=== PATIENT | female | born 1955 | race Caucasian/White ===

== ENCOUNTER 2021-06-07 08:53 | Emergency (ER) | payer MEDICARE, BC ==
--- NOTE | 2021-06-07 09:22 | EDM.PDOC ---
ED HPI GENERAL MEDICAL PROBLEM - General Chief Complaint: General Stated Complaint: CONFUSED, SHORTNESS OF BREATH, FATIGUE Time Seen by Provider: 06/07/21 09:11 Source of Information: Reports: Patient, Family - History of Present Illness INITIAL COMMENTS - FREE TEXT/NARRATIVE: Karen is a 66 y/o female who is brought to the ER by her for confusion. Over the last 2 days, she has been not herself and somewhat confused. She has a hard time thinking about things and remembering things and couldn't decide if it was fall or winter to put on the right jacket. One time over the weekend she fell asleep on the toilet and that is very unusual fro her. Her reports that she was looking at her pills and then was getting confused and not sure what she needed to take. No fever. She did all of a sudden have a couple bouts bouts of shortness of breath and some congestion this AM. No fevers. She has been vaccinated for flu and COVID. Had a positive COVID exposure about 2 weeks ago that she is aware of. She was supposed to clean house today,but she could not remember who it was for ans this is very bizarre for her. She knows she is confused and she finds this very distressing. - Related Data Allergies Allergy/AdvReac Type Severity Reaction Status Date / Time diazepam [From Valium] Allergy Cannot Verified 06/07/21 09:28 Remember tizanidine [From Zanaflex] Allergy Cannot Verified 06/07/21 09:28 Remember Home Meds: Home Meds Amoxicillin 875 mg PO BID #20 tablet 06/07/21 [Rx] Aspirin 325 mg PO DAILY 06/07/21 [History] Celecoxib [CeleBREX] 200 mg PO BID 06/07/21 [History] DULoxetine [Cymbalta] 90 mg PO DAILY 06/07/21 [History] Gabapentin [Neurontin] 200 mg PO BEDTIME 06/07/21 [History] Omeprazole Magnesium [Prilosec Otc] 20 mg PO DAILY 06/07/21 [History] carisoprodoL [Soma] 350 mg PO TID 06/07/21 [History] rOPINIRole [Requip] 0.5 mg PO BEDTIME 06/07/21 [History] Social & Family History - Tobacco Use Tobacco Use Status *Q: Never Tobacco User ED ROS GENERAL - Review of Systems Review Of Systems: See Below Constitutional: Reports: Fatigue HEENT: Reports: Other (Congestion) Respiratory: Reports: Shortness of Breath (mild) Cardiovascular: Reports: No Symptoms Endocrine: Reports: No Symptoms GI/Abdominal: Reports: No Symptoms : Reports: No Symptoms Musculoskeletal: Reports: No Symptoms Skin: Reports: No Symptoms Neurological: Reports: Confusion, Trouble Speaking Psychiatric: Reports: Confusion Hematologic/Lymphatic: Reports: No Symptoms Immunologic: Reports: No Symptoms ED EXAM, GENERAL - Physical Exam Exam: See Below Exam Limited By: Altered Mental Status (mildly confused) General Appearance: Alert, WD/WN, No Apparent Distress (Elderly female, neatly dressed. Slightly distressed and teary-eyed and she knows she is confused.) Eye Exam: Bilateral Eye: PERRL Ears: Normal External Exam, Normal Canal, Hearing Grossly Normal, Normal TMs Nose: Normal Inspection, Normal Mucosa Throat/Mouth: Normal Inspection, Normal Lips, Normal Oropharynx, Normal Voice Head: Atraumatic, Normocephalic Neck: Normal Inspection, Supple Respiratory/Chest: No Respiratory Distress, Lungs Clear, Chest Non-Tender Cardiovascular: Normal Peripheral Pulses, Regular Rate, Rhythm, No Murmur GI/Abdominal: Normal Bowel Sounds, Soft, Non-Tender, No Distention (Female) Exam: Deferred Rectal (Female) Exam: Deferred Back Exam: Normal Inspection, Full Range of Motion Extremities: Normal Inspection, Normal Range of Motion, No Pedal Edema, Normal Capillary Refill Neurological: Alert, Oriented (Confused at times with some memory loss), CN II- XII Intact, Normal Gait, Slow to Respond Psychiatric: Tearful Skin Exam: Warm, Dry, Intact, Normal Color Lymphatic: No Adenopathy #1 Interpretation EKG Date: 06/07/21 Time: 09:36 Rhythm: NSR Rate (Beats/Min): 61 [place]: Normal P-Wave: Present QRS: Normal ST-T: Normal QT: Normal EKG Interpretation Comments: Normal Sinus Rhythm Course - Vital Signs Text/Narrative:: 0911 The patient was seen by the INSURANCE LICENSING SUPERVISOR. Labs, EKG, CXR, and Head CT ordered. Consider COVID, CVA, Cardiac Condition, Tumor, Electrolyte Imbalance, Infection as differentials. 1110 Labs and other diagnostics completed. CBC, CMP, Trop neg. CT neg other than a sinusitis noted. EKG notes NSR, doubt any cardiac etiology. Note UA pos for leuk es and WBCs, will treat with Amoxicillin to cover both UTI and Sinus infection. COVID neg, but she could be early in the course and advised to monitor sx. Results were reviewed with the patient and her . Also note she is on several medications including Gabapentin, Fletcher, Cymbalta that could cause some confusion of she took an excessive amount. Written instructions were given to the patient and her and she left the ER in stable condition. Last Recorded V/S: Last Vital Signs Temp 36.5 C 06/07/21 08:58 Pulse 64 06/07/21 10:05 Resp 18 06/07/21 08:58 BP 135/84 06/07/21 10:05 Pulse Ox 100 06/07/21 08:58 - Orders/Labs/Meds Orders: Active Orders 24 hr Category Date Time Status CULTURE URINE [RM] Stat Lab 06/07/21 10:10 Received Sodium Chloride 0.9% [Saline Flush] Med 06/07/21 09:27 Active 10 ml FLUSH ASDIRECTED PRN Saline Lock Insert [OM.PC] Stat Oth 06/07/21 09:28 Ordered Medication Orders Sodium Chloride (Sodium Chloride 0.9% 10 Ml Syringe) 10 ml FLUSH ASDIRECTED PRN PRN Reason: Keep Vein Open Labs: Laboratory Tests 06/07/21 06/07/21 06/07/21 Range/Units 09:36 09:43 09:43 WBC 5.9 (4.0-10.0) x10^3/uL RBC 4.81 (4.00-5.50) x10^6/uL Hgb 13.5 (12.0-16.0) g/dL Hct 40.7 (33.0-47.0) % MCV 84.6 (78.0-93.0) fL MCH 28.1 (26.0-32.0) pg MCHC 33.2 (32.0-36.0) g/dL RDW Coeff of Shannan 13.3 (10.0-15.0) % Plt Count 283 (130-400) x10^3/uL Immature Gran % (Auto) 0.20 (0.00-0.43) % Neut % (Auto) 67.3 (50.0-80.0) % Lymph % (Auto) 23.0 L (25.0-50.0) % Pike % (Auto) 6.6 (2.0-11.0) % Eos % (Auto) 2.2 (0.0-4.0) % Baso % (Auto) 0.7 (0.2-1.2) % Neut # (Auto) 4.0 (1.8-7.7) x10^3/uL Lymph # (Auto) 1.4 (1.0-4.8) x10^3/uL Pike # (Auto) 0.4 (0.0-0.8) x10^3/uL Eos # (Auto) 0.1 (0.0-0.5) x10^3/uL Baso # (Auto) 0.0 (0.0-0.2) x10^3/uL Immature Gran # (Auto) 0.01 (0.00-0.07) x10^3/uL PT 10.7 (9.9-12.5) SEC INR 1.0 L (2.0-3.5) APTT 28.6 (25.6-32.8) SEC Sodium (136-145) mmol/L Potassium (3.5-5.1) mmol/L Chloride (98-107) mmol/L Carbon Dioxide (21-32) mmol/L Anion Gap (5-15) mmol/L BUN (7-18) mg/dL Creatinine (0.55-1.02) mg/dL Est Cr Clr Drug Dosing Estimated GFR (MDRD) Glucose (70-99) mg/dL Calcium (8.5-10.1) mg/dL Corrected Calcium (8.5-10.1) mg/dL Magnesium (1.8-2.4) mg/dL Total Bilirubin (0.2-1.0) mg/dL AST (15-37) U/L ALT (14-59) U/L Alkaline Phosphatase (46-116) U/L Troponin I High Sens (<=51) ng/L C-Reactive Protein (<=0.9) mg/dL Total Protein (6.4-8.2) g/dL Albumin (3.4-5.0) g/dL Globulin Albumin/Globulin Ratio TSH, Ultra Sensitive (0.358-3.74) uIU/mL Urine Color (YELLOW) Urine Appearance (CLEAR) Urine pH (5.0-8.0) Ur Specific Rule Urine Protein (NEGATIVE) mg/dL Urine Glucose (UA) (NEGATIVE) mg/dL Urine Ketones (NEGATIVE) mg/dL Urine Occult Blood (NEGATIVE) Urine Nitrite (NEGATIVE) Urine Bilirubin (NEGATIVE) Urine Urobilinogen (0.2) EU/dL Ur Leukocyte Esterase (NEGATIVE) Urine RBC (NOT SEEN) /HPF Urine WBC (NOT SEEN) /HPF Ur Squamous Epith Cells (NOT SEEN) /HPF Urine Bacteria (NOT SEEN) /HPF Urine Mucus (NOT SEEN) /LPF Urine Opiates Screen (NEGATIVE) Ur Buprenorphine Scrn (NEGATIVE) Ur Oxycodone Screen (NEGATIVE) Urine Methadone Screen (NEGATIVE) Ur Barbiturates Screen (NEGATIVE) Ur Phencyclidine Scrn (NEGATIVE) Ur Amphetamine Screen (NEGATIVE) U Methamphetamines Scrn (NEGATIVE) Urine MDMA Screen (NEGATIVE) U Benzodiazepines Scrn (NEGATIVE) U Cocaine Metab Screen (NEGATIVE) U Marijuana (THC) Screen (NEGATIVE) Ethyl Alcohol (0-3) mg/dL SARS CoV-2 RNA Rapid PHAM Negative (NEGATIVE) 06/07/21 06/07/21 06/07/21 Range/Units 09:43 09:48 10:10 WBC (4.0-10.0) x10^3/uL RBC (4.00-5.50) x10^6/uL Hgb (12.0-16.0) g/dL Hct (33.0-47.0) % MCV (78.0-93.0) fL MCH (26.0-32.0) pg MCHC (32.0-36.0) g/dL RDW Coeff of Shannan (10.0-15.0) % Plt Count (130-400) x10^3/uL Immature Gran % (Auto) (0.00-0.43) % Neut % (Auto) (50.0-80.0) % Lymph % (Auto) (25.0-50.0) % Pike % (Auto) (2.0-11.0) % Eos % (Auto) (0.0-4.0) % Baso % (Auto) (0.2-1.2) % Neut # (Auto) (1.8-7.7) x10^3/uL Lymph # (Auto) (1.0-4.8) x10^3/uL Pike # (Auto) (0.0-0.8) x10^3/uL Eos # (Auto) (0.0-0.5) x10^3/uL Baso # (Auto) (0.0-0.2) x10^3/uL Immature Gran # (Auto) (0.00-0.07) x10^3/uL PT (9.9-12.5) SEC INR (2.0-3.5) APTT (25.6-32.8) SEC Sodium 145 (136-145) mmol/L Potassium 4.0 (3.5-5.1) mmol/L Chloride 108 H (98-107) mmol/L Carbon Dioxide 28 (21-32) mmol/L Anion Gap 13.0 (5-15) mmol/L BUN 17 (7-18) mg/dL Creatinine 0.7 (0.55-1.02) mg/dL Est Cr Clr Drug Dosing TNP Estimated GFR (MDRD) > 60 Glucose 101 H (70-99) mg/dL Calcium 9.4 (8.5-10.1) mg/dL Corrected Calcium 9.6 (8.5-10.1) mg/dL Magnesium 2.0 (1.8-2.4) mg/dL Total Bilirubin 0.4 (0.2-1.0) mg/dL AST 27 (15-37) U/L ALT 34 (14-59) U/L Alkaline Phosphatase 127 H (46-116) U/L Troponin I High Sens 5 (<=51) ng/L C-Reactive Protein < 0.2 (<=0.9) mg/dL Total Protein 7.0 (6.4-8.2) g/dL Albumin 3.7 (3.4-5.0) g/dL Globulin 3.3 Albumin/Globulin Ratio 1.12 TSH, Ultra Sensitive 0.795 (0.358-3.74) uIU/mL Urine Color Yellow (YELLOW) Urine Appearance Slightly cloudy H (CLEAR) Urine pH 6.0 (5.0-8.0) Ur Specific Rule 1.020 Urine Protein Negative (NEGATIVE) mg/dL Urine Glucose (UA) Negative (NEGATIVE) mg/dL Urine Ketones Negative (NEGATIVE) mg/dL Urine Occult Blood Negative (NEGATIVE) Urine Nitrite Negative (NEGATIVE) Urine Bilirubin Negative (NEGATIVE) Urine Urobilinogen 0.2 (0.2) EU/dL Ur Leukocyte Esterase Trace H (NEGATIVE) Urine RBC 0-5 (NOT SEEN) /HPF Urine WBC 5-10 H (NOT SEEN) /HPF Ur Squamous Epith Cells Few H (NOT SEEN) /HPF Urine Bacteria Occasional H (NOT SEEN) /HPF Urine Mucus Occasional H (NOT SEEN) /LPF Urine Opiates Screen Negative (NEGATIVE) Ur Buprenorphine Scrn Negative (NEGATIVE) Ur Oxycodone Screen Negative (NEGATIVE) Urine Methadone Screen Negative (NEGATIVE) Ur Barbiturates Screen Negative (NEGATIVE) Ur Phencyclidine Scrn Negative (NEGATIVE) Ur Amphetamine Screen Negative (NEGATIVE) U Methamphetamines Scrn Negative (NEGATIVE) Urine MDMA Screen Negative (NEGATIVE) U Benzodiazepines Scrn Negative (NEGATIVE) U Cocaine Metab Screen Negative (NEGATIVE) U Marijuana (THC) Screen Negative (NEGATIVE) Ethyl Alcohol < 3 (0-3) mg/dL SARS CoV-2 RNA Rapid PHAM (NEGATIVE) Meds: Medications Generic Name Dose Route Start Last Admin Trade Name Freq PRN Reason Stop Dose Admin Sodium Chloride 10 ml 06/07/21 09:27 Sodium Chloride 0.9% 10 Ml Syringe FLUSH ASDIRECTED PRN Keep Vein Open - Radiology Interpretation Free Text/Narrative:: XR Chest 1V=negative (See final report) CT Head Wo=notes sphenoid sinusitis, no acute bleeding or other findings (See final report) Departure - Departure Time of Disposition: 11:12 Disposition: Home, Self-Care 01 Preliminary Cause of *Q: Cardiac Arrest Condition: Good Clinical Impression: Confusion UTI (urinary tract infection) Qualifiers: Urinary tract infection type: site unspecified Hematuria presence: without hematuria Qualified Code(s): N39.0 - Urinary tract infection, site not specified Sinusitis, acute, sphenoidal Qualifiers: Recurrence: not specified as recurrent Qualified Code(s): J01.30 - Acute sphenoidal sinusitis, unspecified - Discharge Information Prescriptions: Amoxicillin 875 mg PO BID #20 tablet Instructions: Confusion, Sinusitis, Adult, [id number], Urinary Tract Infection, Adult, [id number] Referrals: Devon,Stephanie Lenore, DO [Primary Care Provider] - Forms: ED Department Discharge Additional Instructions: -Amoxicillin 875mg oral 2x daily for 10 days #20(Rx) This antibiotic will cover your urinary tract infection and your sinus infection. -Rest the next few days -Stay hydrated -Continue all your usual medications. -If your symptoms are not improving or your confusion is worse, call your PCP at the clinic to be seen or return to the ER. Sepsis Event Note (ED) - Focused Exam Vital Signs: Vital Signs Temp Pulse Resp BP Pulse Ox 06/07/21 10:05 64 135/84 06/07/21 08:58 36.5 C 63 18 180/104 H 100 - Problem List & Annotations (1) Confusion SNOMED Code(s): 386491009 Code(s): R41.0 - DISORIENTATION, UNSPECIFIED Status: Acute Current Visit: Yes Annotation/Comment:: Labs negative. CT negative for acute findings. Perhaps sx are related to UTI or Sinusitis. Will send home at this time to monitor sx. (2) Sinusitis, acute, sphenoidal SNOMED Code(s): 07173304 Code(s): J01.30 - ACUTE SPHENOIDAL SINUSITIS, UNSPECIFIED Status: Acute Current Visit: Yes Annotation/Comment:: Note on CT scan, eill trx with Amoxicillin. Congestion associated with the sinusitis could very well be cause of confusion, however unlikely. COVID test negative, but advised to monitor for further URI sx. Qualifiers: Recurrence: not specified as recurrent Qualified Code(s): J01.30 - Acute sphenoidal sinusitis, unspecified (3) UTI (urinary tract infection) SNOMED Code(s): 90625808 Code(s): N39.0 - URINARY TRACT INFECTION, SITE NOT SPECIFIED Status: Acute Current Visit: Yes Annotation/Comment:: Note Luek es and WBCs on UA, Urine Cx pending. Course of Amoxicillin as prescribed above for the Sinusitis should cover her for the UTI. Qualifiers: Urinary tract infection type: site unspecified Hematuria presence: without hematuria Qualified Code(s): N39.0 - Urinary tract infection, site not specified - Problem List Review Problem List Initiated/Reviewed/Updated: Yes - My Orders Last 24 Hours: My Active Orders 06/07/21 09:27 Sodium Chloride 0.9% [Saline Flush] 10 ml FLUSH ASDIRECTED PRN 06/07/21 09:28 Saline Lock Insert [OM.PC] Stat 06/07/21 10:10 CULTURE URINE [RM] Stat - Assessment/Plan Last 24 Hours: My Active Orders 06/07/21 09:27 Sodium Chloride 0.9% [Saline Flush] 10 ml FLUSH ASDIRECTED PRN 06/07/21 09:28 Saline Lock Insert [OM.PC] Stat 06/07/21 10:10 CULTURE URINE [RM] Stat Plan: See above
[2021-06-07] MEDS ORDERED: Sodium Chloride 0.9% 10 ML Syringe FLUSH PRN (09:27)
--- NOTE | 2021-06-07 10:08 | CR ---
[id number] RAD/RAD Chest PA or AP 1V EXAM: FRONTAL CHEST INDICATION: CONFUSION, MILD SHORTNESS OF BREATH. COMPARISON: None. DISCUSSION: The heart and lungs are normal in appearance. IMPRESSION: 1. Negative exam. Dimas Parrish MD 06/07/21 1007 Thank you for allowing us to participate in the care of your patient.
[2021-06-07 10:10] LABS: PTT,PARTIAL THROMBOPLSTIN TIME 28.6 SEC (25.6-32.8)
[2021-06-07 10:21] LABS: CHLORIDE,CL 108 mmol/L (98-107); SODIUM,NA 145 mmol/L (136-145)
[2021-06-07 10:26] LABS: BARBITURATE SCREEN,URINE NEGATIVE (NEGATIVE); BENZODIAZEPINES SCREEN,URINE NEGATIVE (NEGATIVE); METHAMPHETAMINE SCREEN, URINE NEGATIVE (NEGATIVE); THC SCREEN,URINE 50 NG/ML NEGATIVE (NEGATIVE)
[2021-06-07 10:27] LABS: BUPRENORPHINE SCREEN,URINE NEGATIVE (NEGATIVE)
--- NOTE | 2021-06-07 10:43 | CT ---
[id number] CT/CT Head WO IV EXAM: NONCONTRAST HEAD CT INDICATION: CONFUSION. COMPARISON: None. DISCUSSION: The ventricles and sulci are normal in size and configuration. Partially empty sella. The rankin and white matter are normal in attenuation. No mass effect or midline shift. No acute hemorrhage or extra-axial fluid collection. No acute territorial infarct is identified. Fluid and mucosal thickening in the sphenoid sinuses bilaterally. IMPRESSION: 1. Acute sphenoid sinusitis. 2. No acute intracranial findings. Dimas Parrish MD 06/07/21 1042 Thank you for allowing us to participate in the care of your patient.
== END 2021-06-07 11:19 | disposition home or self-care (01) ==
LOC: VM.ED 08:53
DX: R41.0 Disorientation, unspecified (principal); J01.30 Acute sphenoidal sinusitis, unspecified; N39.0 Urinary tract infection, site not specified; Z88.8 Allergy status to other drugs, medicaments and biological substances; Z20.822 Contact with and (suspected) exposure to COVID-19; Z79.899 Other long term (current) drug therapy; Z79.82 Long term (current) use of aspirin
CPT/HCPCS: 70450; 71045; 80053; 80305-QW; 80307; 81001; 83735; 84443; 84484; 85025; 85610; 85730; 86140; 87086; 93005; 93010; 99284; 99285-25; U0002

== ENCOUNTER 2023-06-29 18:27 | Emergency (ER) | payer MEDICARE, BC ==
[2023-06-29 18:51] LABS: BASOPHILS PERCENT AUTO 0.5 % (0.2-1.2); EOSINOPHILS ABSOLUTE AUTO 0.2 x10^3/uL (0.0-0.5); EOSINOPHILS PERCENT AUTO 3.4 % (0.0-4.0); HEMATOCRIT 44.4 % (33.0-47.0); HEMOGLOBIN 14.6 g/dL (12.0-16.0); LYMPHOCYTES ABSOLUTE AUTO 1.8 x10^3/uL (1.0-4.8); LYMPHOCYTES PERCENT AUTO 32.1 % (25.0-50.0); MEAN CORPUSCULAR HGB CONC 32.9 g/dL (32.0-36.0); MEAN CORPUSCULAR VOLUME 85.1 fL (78.0-93.0); MONOCYTES ABSOLUTE AUTO 0.3 x10^3/uL (0.0-0.8); NEUTROPHILS ABSOLUTE AUTO 3.2 x10^3/uL (1.8-7.7); PLATELET COUNT,PLT 303 x10^3/uL (130-400); RED BLOOD CELL COUNT 5.22 x10^6/uL (4.00-5.50); WHITE BLOOD CELL COUNT,WBC 5.5 x10^3/uL (4.0-10.0)
[2023-06-29 19:07] LABS: A/G RATIO 0.95; ALANINE AMINOTRANSFERASE,ALT 30 U/L (14-59); ALBUMIN 3.6 g/dL (3.4-5.0); ALKALINE PHOSPHATASE 122 U/L (46-116); ASPARTATE AMNIOTRANSFERASE,AST 25 U/L (15-37); BILIRUBIN TOTAL 0.4 mg/dL (0.2-1.0); BLOOD UREA NITROGEN,BUN 13 mg/dL (7-18); CALCIUM 9.3 mg/dL (8.5-10.1); CARBON DIOXIDE,CO2 28 mmol/L (21-32); CHLORIDE,CL 106 mmol/L (98-107); CREATININE 0.7 mg/dL (0.55-1.02); GLUCOSE RANDOM 111 mg/dL (70-99); MAGNESIUM 1.8 mg/dL (1.8-2.4); POTASSIUM,K 4.1 mmol/L (3.5-5.1); PROTEIN TOTAL,TP 7.4 g/dL (6.4-8.2); SODIUM,NA 142 mmol/L (136-145)
[2023-06-29 19:09] LABS: ANION GAP 12.1 mmol/L (5-15); C-REACTIVE PROTEIN < 0.50 mg/dL (<=0.50); ESTIMATED GFR 94 mL/min (>=60)
[2023-06-29 19:38] LABS: CORONAVIRUS COVID-19 NAA NEGATIVE (NEGATIVE); INFLUENZA A NAA NEGATIVE (NEGATIVE); INFLUENZA B NAA NEGATIVE (NEGATIVE); RESPIRATORY SYNCYTIAL VIR NAA NEGATIVE (NEGATIVE)
[2023-06-29 20:17] LABS: APPEARANCE,URINE CLEAR (CLEAR); BILIRUBIN,URINE SMALL (NEGATIVE); COLOR,URINE YELLOW (YELLOW); GLUCOSE,URINE NEGATIVE (NEGATIVE); KETONES,URINE NEGATIVE (NEGATIVE); LEUKOCYTE ESTERASE,URINE NEGATIVE (NEGATIVE); NITRITE,URINE NEGATIVE (NEGATIVE); OCCULT BLOOD,URINE NEGATIVE (NEGATIVE); PROTEIN,URINE NEGATIVE (NEGATIVE); UROBILINOGEN,URINE 0.2 EU/dL (0.2)
[2023-06-29] MEDS: Amoxicillin 875 MG Tab PO ONE (20:49)
== END 2023-06-29 20:55 | disposition home or self-care (01) ==
LOC: VM.ED 18:27
DX: J01.30 Acute sphenoidal sinusitis, unspecified (principal); R41.0 Disorientation, unspecified; E78.00 Pure hypercholesterolemia, unspecified; K71.9 Toxic liver disease, unspecified; Z88.1 Allergy status to other antibiotic agents; Z88.8 Allergy status to other drugs, medicaments and biological substances; Z79.899 Other long term (current) drug therapy; Z20.822 Contact with and (suspected) exposure to COVID-19
CPT/HCPCS: 0241U; 36415; 70450; 80053; 81003; 83735; 85025; 86140; 99285; A9270; 99284

== ENCOUNTER 2025-01-15 10:37 | Emergency (ER) | payer MEDICARE, BC | END 2025-01-15 11:20 | disposition home or self-care (01) | LOC: VM.ED 10:37 | DX: K64.9 Unspecified hemorrhoids (principal); E78.00 Pure hypercholesterolemia, unspecified; K21.9 Gastro-esophageal reflux disease without esophagitis; Z88.8 Allergy status to other drugs, medicaments and biological substances; Z79.899 Other long term (current) drug therapy | CPT/HCPCS: 99283 ==